=== PATIENT | male | born 1970 | race Caucasian/White ===

== ENCOUNTER 2021-05-08 01:30 | Emergency (ER) | payer MEDICARE, SELFPAY ==
[2021-05-08] VITALS (7 sets, daily range): BP systolic 142–149; BP diastolic 86–94; PULSE 87–98; RESP 1–20; TEMP 36.6; O2SAT 98–100
--- NOTE | 2021-05-08 01:45 | DI.CT_ITS ---
Exam(s) CT CHEST PE CTA EXAM: CT CHEST PE CTA CLINICAL HISTORY: covid+, sob, tachy, r/o PE. TECHNIQUE: Imaging Protocol: Axial CT angiography was performed with multi-slice acquisition and mu lti-planar and/or 3D reconstructions. CONTRAST MATERIAL: Intravenous: Omnipaque 350 Contrast volume:100 mL COMPARISON: CT CT CHEST W/CONTRAST from 06/27/[address] CHEST W/CONTRAST from 06/27/2020 FINDINGS: Tracheobronchial tree: Patent where visualized. Pulmonary parenchyma: No consolidation or dominant measurable mass. No architectural distortion. Olga Lidia ral small subpleural blebs are identified. Pulmonary Arteries: No evidence of filling defect to suggest pulmonary emboli. Mediastinum and Kaylee: No dominant adenopathy or fluid collection. Visualized thyroid gland: Unremarkable. Pleura: No effusion or pneumothorax. Heart: The heart is not dilated. Coronary artery calcification. No pericardial effusion. Aorta: Thoracic aorta non-dilated. No evidence of dissection. Upper abdomen: Unremarkable. Soft tissues: Unremarkable. Bones: Within normal limits for the patient's age. IMPRESSION: No evidence of pulmonary embolism, thoracic aortic dissection or aneurysm. RADIATION DOSE DELIVERED: 435.88mGy.cm Total DLP DATA REPOSITORY: All CT scans at this facility are submitted to the National Radiology Data Registry (NRDR) Dose Index Registry (DIR) with the [employer] (A[employer]). RADIATION OPTIMIZATION: All CT scans at this facility use at least one of these dose optimization te chniques: automated exposure control; mA and/or kV adjustment per patient size (includes targeted exa ms where dose is matched to clinical indication); or iterative reconstruction.
--- NOTE | 2021-05-08 01:45 | RT.EKG_ITS ---
APPROVED REPORT Exam: Resting ECG Reason for Exam: sob Patient Location: E HR:87 bpm ECG Measurements Heart Rate [address] 144 P 74 QRSd 72 QRS 64 QT 349 T 57 QTc 422 Conclusion Sinus rhythm...normal P axis, V-rate 60- 99 Physician: no stemi, unremarkable
--- NOTE | 2021-05-08 02:03 | ED.GENADUL_ITS ---
Discharge Plan Disposition Patient Disposition: HOME Condition: Good Discharge Details Clinical Impression: COVID-19, Cough, persistent Primary Care Provider: Mel Ospina ED Provider: Jonas Partida Home Meds and New Rx's Prescriptions: Continued aspirin 81 mg Capsule,Delayed Release(Dr/Ec) 81 mg PO DAILY RF: 0 losartan 50 mg Tablet 50 mg PO DAILY RF: 0 indomethacin 50 mg Capsule 50 mg PO BID RF: 0 buspirone 15 mg Tablet 15 mg PO BID RF: 0 omeprazole 40 mg Capsule,Delayed Release(Dr/Ec) 40 mg PO DAILY RF: 0 sildenafil 100 mg Tablet 100 mg PO DAILY PRNRF: 0 simvastatin 20 mg Tablet 20 mg PO DAILY RF: 0 albuterol sulfate [ProAir HFA] 90 mcg/actuation Hfa Aerosol Inhaler 2 puff INHALATION Q4H PRNRF: 0 buprenorphine-naloxone 8-2 mg Tablet, Sublingual 1 tab SUBLINGUAL DAILY RF: 0 Discharge Instructions Instructions: COVID-19 (Coronavirus Disease 2019) (ED) Additional Instructions: You still test positive for COVID-19. Thankfully your laboratory work-up is pristine. Your chest x-ray shows no pneumonia blood clots or other abn ormalities. You do have elevation of your liver function which is likely combination of Covid and alcohol use. Please do your best to cut down on alcohol use. Please continue to use your inhalers at home as directed. 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 If you notice any worsening of your symptoms, or any new symptoms such as vomiting, diarrhea, fever, chills, shortness of breath, chest pain, numbness, weakness, or fainting , please return immediately to the emergency department for reevaluation. Please follow up with your primary care provider as soon as possible for reassessment and reevaluation. As always, it was a pleasure participating in your medical care today. Referrals: Mel Ospina [Primary Care Provider] - Medical Decision Making 50-year-old male with a past medical history of asthma, high choleste rol, hypertension, methadone use and daily aspirin use, tobacco abuse, presents today for evaluation of Covid symptoms. Patient states that he was diagnosed with Covid 3 weeks ago, since then he has had persistent cough, shortness of breath and difficulty breathing. He states that he was treated up in [facility] and discharged from the ED with amoxicillin and inhalers. He denies any improvement with these. Cough is productive with brown sputum. He denies any arm or leg pain. He does admit to mild chest achiness which she has had since Covid started. He denies any current fevers but does admit to chills. No other complaints at this time. No history of cardiac disease. No history of blood clots. Physical exam demonstrates rhonchorous breath sounds, crackles throughout. Akiko ent is tachycardic but oxygenating well, differential includes PE, persistent pneumonia, or long Covid. We will get a CTA, gently rehydrate, breathing treatments, monitor closely and reassess. 4:12 AM Laboratory work-up has returned relatively unremarkable, no lymphopenia, leukocytosis or left shift. Electrolytes stable renal function good, troponin and EKG unremarkable. Patient's Covid test is still testing positive, patient is infectious. He does have transaminitis, and he does admit to drinking a 12 pack a day. Likely a component of his transaminitis however we will send a hepatitis panel. CTA is negative for pulmonary embolism or any other significant abnormality. Lungs actually look significantly good. After 3 breathing treatments patient feels much much better. Is not a candidate for immunoglobulin therapy at this stage of his disease. He does have an albuterol inhaler at home with a spacer, as well as a steroid inhaler from what he is explaining, recommend that he continue to use the albuterol inhaler every 4 hours with spacer. We will set up a referral for pulmonology on an outpatient basis. Suspect he is transitioning to a large hilar status. Discussed red f lags which to return. Patient's oxygenation remains 99% during his entire stay. No indication for admission at this time. I have extensively reviewed the treatment plan and discharge instructions with the patient and their family. I have addressed all patient concerns at this time. The patient and family was made aware of what symptoms to monitor for that would warrant a return to the emergency department. Discussed the plan with the patient and family, they demonstrate verbal understanding and agreement with our assessment and plan at this time. The documentation in this chart was dictated using [employer] dictation software. Please excuse any dictation errors. FINDINGS: Pulmonary arteries: Normal. No pulmonary emboli. Aorta: Unremarkable. No aortic aneurysm. No aortic dissection. Lungs: Unremarkable. No consolidation. No masses. Pleural spaces: Unremarkable. No pneumothorax. No pleural effusion. Heart: Unremarkable. No cardiomegaly. No pericardial effusion. Lymph nodes: Unremarkable. No enlarged lymph nodes. Liver: Hepatic steatosis. Bones/joints: Unremarkable. No acute fracture. Soft tissues: Unremarkable. IMPRESSION: No acute finding. Thank you for allowing us to participate in the care of your patient. HPI General Date/Time Provider Initiated Documentation: 05/08/21 01:34 . HPI Narrative: 50-year-old male with a past medical history of asthma, high cholesterol, hypertension, methadone use and daily aspirin use, tobacco abuse, presents today for evaluation of Covid symptoms. Patient states that he was diagnosed with Covid 3 weeks ago, since then he has had persistent cough, shortness of breath and difficulty breathing. He states that he was treated up in [facility] and discharged from the ED with amoxicillin and inhalers. He denies any improvement with these. Cough is productive with brown sputum. He denies any arm or leg pain. He does admit to mild chest achiness which she has had since Covid started. He denies any current fevers but does admit to chills. No other complaints at this time. No history of cardiac disease. No history of blood clots. Related Data Home Medications Medication Instructions Recorded Confirmed albuterol sulfate [ProAir HFA] 2 puff INHALATION Q4H PRN 01/18/21 05/08/21 aspirin 81 mg PO DAILY 01/18/21 05/08/21 buprenorphine-naloxone 1 tab SUBLINGUAL DAILY 01/18/21 05/08/21 buspirone 15 mg PO BID 01/18/21 05/08/21 indomethacin 50 mg PO BID 01/18/21 05/08/21 losartan 50 mg PO DAILY 01/18/21 05/08/21 omeprazole 40 mg PO DAILY 01/18/21 05/08/21 sildenafil 100 mg PO DAILY PRN 01/18/21 05/08/21 simvastatin 20 mg PO DAILY 01/18/21 05/08/21 Allergies Allergy/AdvReac Type Severity Reaction Status Date / Time sulfamethoxazole Allergy rash Verified 05/08/21 02:53 [From Bactrim] trimethoprim [From Bactrim] Allergy rash Verified 05/08/21 02:53 Review of Systems All systems reviewed & are unremarkable except as noted in HPI and below PFSH Medical History Alcohol dependence Anxiety disorder Asthma Blood chemistry abnormality Chest pain GERD (gastroesophageal reflux disease) Herpes simplex HTN (hypertension) Impotence Left patella fracture ORIF Liver function test abnormality Low back pain Lumbosacral radiculitis Moderate recurrent major depression Nicotine dependence Olecranon bursitis MADONNA (obstructive sleep apnea) Psychophysiologic insomnia Suicidal thoughts Therapeutic drug monitoring Tinea cruris Surgical History History of appendectomy Hx of colonoscopy Hx of hemorrhoidectomy Social History Smoking/Tobacco Use Status: Former Tobacco Use Quit Date: 04/16/21 Smoking risk assessment performed?: Yes Alcohol Intake: current Alcohol Intake frequency: 3 or more drinks per day Alcohol type: beer Drug use: Current Sobriety Substance use type: former substance user Details: Clean x 5 years Do you feel safe at home: Yes Do you feel safe in your relationship?: Yes Exam Narrative Exam Narrative: 1.Const: Well-nourished, Well-developed, appearing stated age 2.Eyes: PERRL, no conjunctival injection, and symmetrical lids. 3.ENT: Atraumatic external nose and ears. Moist MM. Neck: Symmetric, trachea midline, No thyromegaly. 4.CVS: +S1/S2, No murmurs or gallops. Peripheral pulses 2+ and equal in all extremities. Brisk capillary refill in all extremities. 5.RESP: Rhonchorous breath sounds, wheezes, crackles throughout. 6.GI: Soft, Nontender/Nondistended, No hepatosplenomegaly. No guarding or rebound. 7.MSK: Normocephalic/Atraumatic, Extremities w/o deformity or ttp No cyanosis or clubbing, Normal movement of all extremities 8.Skin: Warm, Dry. No rashes or lesions. 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 Sensation grossly intact, no focal neurologic deficits. 10.Psych: (AAO) x3. Appropriate mood and affect
[2021-05-08 02:49] LABS: Abs Immature Grans 0.01 10^3/uL (0.0-0.06); Absolute Basophil Count 0.03 10^3/uL (0.0-0.2); Absolute Eosinophil Count 0.08 10^3/uL (0.0-0.7); Absolute Lymphocyte Count 1.76 10^3/uL (1.2-3.4); Absolute Monocyte Count 0.38 10^3/uL (0.1-0.8); Absolute Neutrophil Count 1.77 10^3/uL (1.2-6.7); Basophils % 0.7; HCT 40.2 % (40.0-50.0); HGB 13.9 g/dL (13.5-17.5); Immature Grans % 0.2; Lymphocytes % 43.7; MCH 29.6 pg (27.0-33.0); MCHC 34.6 % (32.0-36.0); MCV 85.5 fL (80-95); Monocytes % 9.4; Nucleated RBC 0 %; Platelet Count 264 10^3/uL (130-400); RDW 12.6 % (11.8-14.1); RDW-SD 39.5 fL; WBC 4.03 10^3/uL (4.4-10.8)
[2021-05-08 02:50] LABS: BE (Venous) 4 mmol/L (-2-3); HCO3 (Venous) 28 mmol/L (23-28); O2 Sat (Venous) 96 %; TCO2 (Venous) 24 mmol/L (24-29); pCO2 (Venous) 39 mmHg (41-51); pH (Venous) 7.46 (7.31-7.41); pO2 (Venous) 89 mmHg
[2021-05-08] MEDS: Normal Saline 1,000 ML 1000 ML IV (02:51)
[2021-05-08] MEDS: Omnipaque 350 MG/ML 100 ML BTL IJ (02:52)
[2021-05-08] MEDS: Normal Saline - Diluent 50 ML VIAL IV (02:53)
[2021-05-08] MEDS: Normal Saline Flush 10 ML SYR IVP (02:54)
[2021-05-08] MEDS: Albuterol/Ipratropium 3 ML UPD VIAL 9 ML UPD (02:59)
[2021-05-08 03:06] LABS: Source Nasal/Nares
[2021-05-08 03:12] LABS: ALT 193 U/L (16-63); AST 124 U/L (15-37); Albumin 3.7 g/dL (3.4-5.0); Alkaline Phosphatase 123 U/L (46-116); Anion Gap 9.4 mmol/L (3-11); BUN 10 mg/dL (7-18); Bilirubin, Total 0.3 mg/dL (0.2-1.0); CO2 28.6 mmol/L (21.0-32.0); CREATININE 0.9 mg/dL (0.70-1.30); Calcium 8.3 mg/dL (8.5-10.1); Chloride 101 mmol/L (98-107); Glucose 152 mg/dL (74-106); NT-proBNP 13 pg/mL (<300); Potassium 3.6 mmol/L (3.5-5.1); Sodium 139 mmol/L (136-145); Troponin I < 0.05 ng/mL (<0.06)
[2021-05-08 03:37] LABS: INR 1.1 (0.9-1.1); PTT Activated 22.7 sec (21.0-27.5); Prothrombin Time 10.9 sec (9.3-11.0)
--- NOTE | 2021-05-08 03:53 | DI.VRAD_ITS ---
PROCEDURE INFORMATION: Exam: CTA Chest With Contrast Exam date and time: 05/08/2021 1:59 AM Age: 50 years old Clinical indication: Other: Covid+, SOB, tachy, R/O pe TECHNIQUE: Imaging protocol: Computed tomographic angiography of the chest with contrast. 3D rendering (Not supervised by radiologist): MIP and/or 3D reconstructed images were created by the technologist. COMPARISON: No relevant prior studies available. FINDINGS: Pulmonary arteries: Normal. No pulmonary emboli. Aorta: Unremarkable. No aortic aneurysm. No aortic dissection. Lungs: Unremarkable. No consolidation. No masses. Pleural spaces: Unremarkable. No pneumothorax. No pleural effusion. Heart: Unremarkable. No cardiomegaly. No pericardial effusion. Lymph nodes: Unremarkable. No enlarged lymph nodes. Liver: Hepatic steatosis. Bones/joints: Unremarkable. No acute fracture. Soft tissues: Unremarkable. IMPRESSION: No acute finding. Dictated and Authenticated by: Luis Enrique Thomas MD. Ordering:DIPIKA Mcdaniel MD
--- NOTE | 2021-05-08 03:55 | NUR.NOTE ---
Nursing Noterefgeral to pulmonary for persistant cough and sob post covid 05/08/21:
[2021-05-08 03:57] LABS: COVID-19 PCR POSITIVE (Negative)
[2021-05-09 11:00] LABS: Hepatitis A Antibody IgM Negative (Negative); Hepatitis B Core Antibody Negative (Negative); Hepatitis B surface Ag Negative (Negative); Hepatitis C Ab w Rflx HCV PCR Negative (Negative)
== END 2021-05-08 04:30 | disposition home or self-care (01) ==
LOC: ER 04:28
PROVIDERS: Emergency Provider Student in an Organized Health Care Education/Training Program; PCP Registered Nurse
DX: U07.1 COVID-19 (principal); R05.3 Chronic cough; R06.02 Shortness of breath; R74.01 Elevation of levels of liver transaminase levels; F17.210 Nicotine dependence, cigarettes, uncomplicated; Z20.822 Contact with and (suspected) exposure to COVID-19; F10.10 Alcohol abuse, uncomplicated
CPT/HCPCS: 36415; 71275; 80053; 82805; 86704; 86709; 86803; 87340; 87635; 93005; 94640; 96360; 99285; 83880; 84484; 85025; 85610; 85730; 93010; J3490; J7620